=== PATIENT | male | born 1960 | race Caucasian/White ===

== ENCOUNTER 2017-02-27 14:33 | Emergency (ER) | payer OTHER ==
[~2017-02-27] VITALS: Ht 154.9 cm; Wt 65.0 kg
[~2017-02-27 14:33] MED LIST: LIPI20TA PO; PROT40TA PO; PROZ20CA11 PO
[2017-02-27 14:36] VITALS: BP 159/76; PULSE 77; RESP 12; TEMP 98.6; O2SAT 100
--- NOTE | 2017-02-27 14:44 | PD ---
Physical Exam Date Seen by Provider: February 27, 2017 Time Seen by Provider: 14:42 Narrative 56 year old male presents to the emergency department for evaluation of lip laceration that occurred just prior to arrival. He was working on something when it lacerated his left upper lip. He states his tetanus immunization is up to date. Vital signs reviewed. Patient waiting bed placement. Data Data Last Documented VS Vital Signs Date Time Temp Pulse Resp B/P Pulse Ox O2 Delivery O2 Flow Rate FiO2 02/27/17 14:36 98.6 77 12 159/76 100 MDM Supervised Visit with NICKIE: Marium Rain February 27, 2017 14:44
--- NOTE | 2017-02-27 14:58 | PD ---
HPI Chief Complaint: Laceration/Skin Injury Time Seen by Provider: 14:58 Travel History International Travel<30 days: No Contact w/Intl Traveler<30days: No Traveled to known affect area: No History of Present Illness HPI 56-year-old male with history of hyperlipidemia presents to the ED for evaluation of lip laceration. Patient states he was working on a piece of metal when it fell and struck him in the lip. He denies being hit in the head or loss of consciousness. He endorses dull, "all over" headache, dental pain and 10/10 lip pain on presentation. Denies other somatic complaints. He states his last tetanus immunization was 2 years ago. No treatment attempt at home. Daughter is at bedside. PFSH Past Medical History Depression: Yes Cardiovascular Problems: Yes High Cholesterol: Yes Diminished Hearing: No GERD: Yes Tetanus Vaccination: < 5 Years Past Surgical History Surgical History: No Previous Surgery Social History Alcohol Use: No (PT DENIES) Tobacco Use: No Substance Use: No (PT DENIES) Allergies-Medications (Allergen,Severity, Reaction): Coded Allergies: No Known Allergies (Unverified , 02/27/17) Reported Meds & Prescriptions Reported Meds & Active Scripts Active Amoxicillin 500 Mg Cap 500 Mg PO TID 7 Days Magic Mouthwash Adult Liq (Multi-Ingredient Mouthwash/Gargle) 120 Ml Susp 10 Ml SWISH-SWAL ACHS Each 5mL contains: Nystatin 200,000units, Diphenhydramine 4.25mg, Viscous Lidocaine 10mg, Roberson syrup 0.8 mL Naprosyn (Naproxen) 500 Mg Tab 500 Mg PO BID Protonix (Pantoprazole Sodium) 40 Mg Tab 40 Mg PO DAILY PRN Reported Prozac (Fluoxetine HCl) 20 Mg Cap 20 Mg PO HS Lipitor (Atorvastatin Calcium) 20 Mg Tab 20 Mg PO DAILY Review of Systems Except as stated in HPI: all other systems reviewed are Neg Physical Exam Narrative GENERAL: Well-nourished, well-developed male in no acute distress. SKIN: Focused skin assessment warm/dry. There is 1.5 cm stellate laceration just left of midline of the upper lip. This penetrates to the oral mucosa. The inner laceration measures approximately 0.75 cm. DENTAL: No loose or chipped teeth. No malocclusion. There is a 0.25 cm laceration of the mucosa over the upper alveolar ridge. HEAD: Normocephalic. EYES: No scleral icterus. No injection or drainage. NECK: Supple, trachea midline. No JVD or lymphadenopathy. CARDIOVASCULAR: Regular rate and rhythm without murmurs, gallops, or rubs. RESPIRATORY: Breath sounds clear and equal bilaterally. No accessory muscle use. GASTROINTESTINAL: Abdomen soft, non-tender, nondistended. Active bowel sounds. MUSCULOSKELETAL: No cyanosis, or edema. Patient is ambulatory and moves extremities spontaneously. BACK: Nontender without obvious deformity. No CVA tenderness. Data Data Last Documented VS Vital Signs Date Time Temp Pulse Resp B/P Pulse Ox O2 Delivery O2 Flow Rate FiO2 02/27/17 14:36 98.6 77 12 159/76 100 Orders Lidocaine 1% Inj (50 Ml) (Xylocaine 1% I (02/27/17 15:15) Bupivacaine Pf 0.5% Inj (Marcaine Pf 0.5 (02/27/17 15:15) Acetamin-Hydrocod 325-5 Mg (Madison 5-325 (02/27/17 15:15) Facial Bones - Ltd (<3vws) (02/27/17 15:17) MDM Medical Decision Making Medical Screen Exam Complete: Yes Emergency Medical Condition: Yes Differential Diagnosis facial laceration versus dental injury versus retained foreign body versus tooth avulsion versus maxillary fracture versus other Narrative Course 56-year-old male with history of hyperlipidemia presents to the ED for evaluation of lip laceration. Patient states he was working on a piece of metal when it fell and struck him in the lip. He denies being hit in the head or loss of consciousness. He endorses dull, "all over" headache, dental pain and 10/10 lip pain on presentation. Denies other somatic complaints. Tetanus is UTD. Daughter is at bedside. Vitals reviewed. Physical exam reveals an alert male in no acute distress. There is a laceration of the upper lip that penetrates to the buccal mucosa. There is a 0.25 cm laceration of the mucosa over the upper alveolar ridge. Patient was administered 5 mg Madison by mouth. X-ray of the facial bones reveals no foreign body or acute bony injury. Laceration repair was performed. Please see my procedure note for details. Patient was given detailed instructions for wound care and provided prophylactic amoxicillin. He was also prescribed a short course of Naprosyn and Magic mouthwash. Was instructed to return for suture removal in 7-10 days. Patient is daughter indicated understanding of the discharge instructions and are agreeable to the care plan. The patient is stable and discharged home. Procedures Procedure Narrative LACERATION LOCATION: Just left of midline in the upper lip LENGTH: 1.75 cm stellate NUMBER OF STITCHES/SONAL: 7 REPAIR: The area of the laceration was prepped with Betadine and sterilely draped. A infraorbital nerve block was performed with 1% lidocaine. The wound was copiously irrigated and explored without evidence of foreign body, tendon injury or neurovascular injury. The wound was closed using 5-0 Prolene. This was a single layer repair. The patient was advised to keep the wound clean and dry. Patient tolerated the procedure well. LACERATION LOCATION: Buccal surface of the upper lip LENGTH: 0.75 cm NUMBER OF STITCHES/SONAL: 2 REPAIR: The area of the laceration was prepped with Betadine and sterilely draped. An infraorbital nerve block was performed with 1% lidocaine. The wound was copiously irrigated and explored without evidence of foreign body, tendon injury or neurovascular injury. The wound was closed using 3-0 chromic. This was a single layer repair. The patient was advised to keep the wound clean and dry. Patient tolerated the procedure well. Diagnosis Primary Impression: Lip laceration Qualified Code: S01.511A - Lip laceration, initial encounter Referrals: Primary Care Physician Patient Instructions: Facial Laceration (ED), General Instructions Additional Instructions: Rest, hydrate. Eat a soft diet for 2-3 days. Rinse the mouth with water after eating. Avoid spicy or salty foods until the wound is healed (3-5 days). Avoid use of straws. Take amoxicillin as prescribed. Take all the medication until it is gone. Magic mouthwash 3-4 times a day as needed for dental pain. Naprosyn 500 mg twice a day for pain. Return for suture removal in 5-7 days. Follow-up with primary care provider. Return to the ED for any urgent or emergent medical condition. Med/Other Pt SpecificInfo: Prescription(s) given Scripts Amoxicillin 500 Mg [id number] Mg PO TID 7 Days Ref 0 Prov:Malcom Rodas MD 02/27/17 Yxioskzk-Kfxqkewzeiykskw-Wytyyckwm Liq (Magic Mouthwash Adult Liq)120 Ml Susp10 Ml SWISH-SWAL ACHS #120 ML Ref 0 Each 5mL contains: Nystatin 200,000units, Diphenhydramine 4.25mg, Viscous Lidocaine 10mg, Roberson syrup 0.8 mL Prov:Malcom Rodas MD 02/27/17 Naproxen (Naprosyn)500 Mg [id number] Mg PO BID #14 TAB Ref 0 Prov:Malcom Rodas MD 02/27/17 Disposition: 01 DISCHARGE HOME Condition: Stable Dominique Matthew February 27, 2017 14:58
[2017-02-27] MEDS ORDERED: LIDOCAINE HCL 1% 50 ML VIAL INFIL ONE (15:15)
[2017-02-27] MEDS ORDERED: BUPIVACAINE HCL PF 0.5% 10 ML VIAL INFIL ONE (15:15)
[2017-02-27] MEDS ORDERED: ACETAMINOPHEN/HYDROcodone 325 MG/5 MG TAB PO ONE (15:15)
--- NOTE | 2017-02-27 16:26 | RADRPT ---
EXAM DATE/TIME: 02/27/2017 15:37 [facility] COMPARISON: No previous studies available for comparison. INDICATIONS : Patient was hit in face with a piece of metal flying off of tool he was working with. Laceration and swelling to left side of upper lip. Evaluate for foreign body or fracture. MEDICAL HISTORY : None. SURGICAL HISTORY : None. ENCOUNTER: Initial ACUITY: 1 day PAIN SCORE: Non-responsive. LOCATION: Left Upper lip. FINDINGS: Two view examination of the facial bones demonstrates no gross evidence of fracture. No radiopaque f oreign bodies are seen. CONCLUSION: 1. No acute findings. Escobar Muro MD on February 27, 2017 at 16:20 Board Certified Radiologist. This report was verified electronically.
[2017-02-27] MEDS ORDERED: NAPR500 PO (16:40)
[2017-02-27] MEDS ORDERED: MAGICADU2 SWISH-SWAL (16:40)
[2017-02-27] MEDS ORDERED: AMOX500C PO (16:40)
== END 2017-02-27 16:55 | disposition home or self-care (01) ==
LOC: NEPD 14:33
DX: S01.511A Laceration without foreign body of lip, initial encounter (principal); E78.00 Pure hypercholesterolemia, unspecified; K21.9 Gastro-esophageal reflux disease without esophagitis; W22.8XXA Striking against or struck by other objects, initial encounter; Y93.9 Activity, unspecified; Y92.9 Unspecified place or not applicable; Y99.9 Unspecified external cause status
CPT/HCPCS: 12011; 70140